=== PATIENT | female | born 1985 | race Caucasian/White ===

== ENCOUNTER 2023-03-18 11:47 | Emergency (ER) | payer OTHER, SELFPAY ==
--- NOTE | ~2023-03-18 | XR_ITS ---
EXAMINATION: XR ABDOMEN COMPLETE CLINICAL INDICATION: Constipation COMPARISON: None available. TECHNIQUE: 2 views of the abdomen. FINDINGS: There is scattered stool and gas seen in colon without distention. There is no organomegaly. No radiopaque calculi. There are surgical maría right upper quadrant from previous cholecystectomy. No gross bony abnormality seen. XR/XR abdomen 3V IMPRESSION: Mild constipation. No acute process seen.
--- NOTE | 2023-03-18 12:02 | ED.GENADULT ---
HPI - General Adult General Chief complaint: Abdominal Pain Stated complaint: Back Pain No Injury Time Seen by Provider: 03/18/23 18:55 Source: patient Mode of arrival: ambulatory Limitations: no limitations History of Present Illness HPI narrative: Patient comes to the emergency room complaining of constipation. Patient states that she has pushing so hard that now she has a small amount of rectal bleeding. Patient takes iron pills. Patient states that she has tried [id number] medications, topical oral that she has applied in the rectal area. One suppository which she applied earlier today. Patient denies nausea vomiting or diarrhea. Denies obstipation. Patient states that she has been unable to urinate since this morning. Yet she does not have any suprapubic tenderness. Related Data Previous Rx's Medication Instructions Recorded hydrocortisone 1 % topical cream 1 appl topical QID PRN itching 03/18/23 (Preparation H Hydrocortisone) #28.35 grams polyethylene glycol 3350 17 17 g PO BID #119 grams 03/18/23 gram/dose oral powder (Miralax) sodium phosphates 19 gram-7 118 ml [place] DAILY 21 days #133 mL 03/18/23 gram/118 mL enema (Fleet Enema) Allergies Allergy/AdvReac Type Severity Reaction Status Date / Time No Known Allergies Allergy Verified 03/18/23 12:03 Review of Systems Review of Systems: Constitutional : No Weight loss, No Fever, No Chills, No Night Sweats, No Fatigue, No Malaise ENT/Mouth : No Hearing loss, No Ear Pain, No Nasal Congestion, No Sinus Pain, No Hoarseness, No sore throat, No Rhinorrhea, No Swallowing Difficulty Eyes: No Eye Pain, No Swelling, No Redness, No Foreign Body, No Discharge, No Vision Changes Cardiovascular : No Chest Pain, No SOB, No Dyspnea on Exertion, No Orthopnea, No Edema, No Palpitations Respiratory : No Cough, No Sputum, No Wheezing, No Smoke Exposure, No Dyspnea Gastrointestinal : No Nausea, No Vomiting, No Diarrhea, complaining of Constipation, No abdominal Pain, complaining of rectal pressure, no pain Genitourinary : no irregular bleeding, No Dysuria, No Urinary Frequency, No Hematuria, No Urinary Incontinence, No Urgency, No Flank Pain, No Urinary Flow Changes, No Hesitancy Musculoskeletal : No joint pain, No Myalgias, No Joint Swelling Skin : No Skin Lesions, No rash Neuro : No Weakness, No Numbness, No Paresthesias, No Loss of Consciousness, No Dizziness, No Headache Psych : No Anxiety/Panic, No Depression, No SI/HI/AH/VH, No Social Issues, Heme/Lymph: No Bruising, No Bleeding,No Lymphadenopathy Endocrine : No Polyuria, No Polydipsia, No Temperature Intolerance [facility] Social History Social History Smoked in Last 30 Days: No Substance Use Type: Marijuana Substance Use Frequency: Occasionally Advance Directives: No Advance Directives Information Provided: Yes Physical Exam ED Vital Signs: Vital Signs - 24 hr 03/18/23 12:03 03/18/23 17:51 03/18/23 18:45 Temperature 97.8 F Pulse Rate 95 98 Respiratory Rate 16 18 20 Blood Pressure 148/103 H 137/91 H 129/87 Pulse Oximetry 100 99 98 Oxygen Delivery Method Room Air Room Air Room Air 03/18/23 20:01 Temperature Pulse Rate 77 Respiratory Rate 16 Blood Pressure 126/73 Pulse Oximetry 98 Oxygen Delivery Method Room Air BMI result Body Mass Index 42.5 Const Other: Appearance: Alert. Oriented X3. No acute distress. Eyes: Pupils equal, round and reactive to light. ENT: Pharynx normal. Neck: Normal inspection. Neck supple. No lymph nodes noted. No crepitus CVS: Normal heart rate and rhythm. Pulses normal. Normal S1 and S2 Respiratory: No respiratory distress. Breath sounds normal. No Wheezing. No rales Abdomen: Soft and nontender. No rigidity. No distention. Non thrombosed external hemorrhoid, not bleeding Skin: Skin warm and dry. Normal skin color. Normal skin turgor. Extremities: No lower extremity edema. No Lacerations. No Rash Neuro: Oriented X 3. No motor deficit. No sensory deficit. Moving all extremities. No slurred speech. CN 2 through 12 grossly intact Psych: calm, cooperative, normal affect Course Course Course Narrative: RME:?37 yo female hx hemorrhoids here w/ constipation x days. Last BM yesterday. Reports straining. Using oils/ suppositories to pass BM. not working. taking iron pills. last po intake yesterday. Plan for xr, labs Full HPI, ROS and PE to be performed by the primary ED provider. Medical Decision Making Medical Decision Making MDM Narrative: -my interpretation of KUB: No small bowel obstruction, moderate amount of stool. Discussed the JV with the patient -my interpretation of labs, normal hemoglobin and normal chemistry -bladder scan pending -I was informed by the patient's nurse that the patient reported that she went to the bathroom, had a large amount of urine output. Bladder scan after voiding 7 mL Differential Diagnosis Differential Diagnoses: The differential diagnosis associated with the presentation includes (Constipation, small-bowel obstruction) Lab Data MDM Lab Attestation statement: I reviewed the patient's lab results. 03/18/23 12:19 03/18/23 12:19 Labs: Lab Results 03/18/23 Range/Units 12:19 WBC 8.1 (4.8-10.8) X10*3/uL RBC 4.96 (4.20-5.50) X10*6/uL Hgb 12.8 (12.0-16.0) g/dl Hct 40.4 (37.0-47.0) % MCV 81.5 (80.0-98.0) fL MCH 25.8 L (27.0-33.0) pg MCHC 31.7 (31.0-35.0) g/dl RDW 16.8 H (11.0-16.0) % Plt Count 393 (160-400) X10*3/uL MPV 9.9 (9.4-12.3) fL Immature Gran % (Auto) 0.2 (0.0-0.4) % Neut % (Auto) 53.7 (45-73) % Lymph % (Auto) 37.8 (20-40) % Milam % (Auto) 5.4 (2-11) % Eos % (Auto) 2.5 (0-4) % Baso % (Auto) 0.4 (0-2) % Lymph # (Auto) 3.1 (1.2-4.9) X10*3/uL Milam # (Auto) 0.4 (0.1-1.2) X10*3/uL Eos # (Auto) 0.2 (0.0-0.4) X10*3/uL Baso # (Auto) 0.0 (0.0-0.2) X10*3/uL Abs Immat Gran (auto) 0.02 (0.00-0.03) X10*3/uL Absolute Neuts (auto) 4.4 (2.0-8.3) x10*3/uL Absolute Nucleated RBC 0.000 (0.0-0.012) X10*3/uL Nucleated RBC % (auto) 0.0 (0.0-0.2) /100WBC Sodium 141 (135-145) mmol/L Potassium 3.9 (3.3-5.1) mmol/L Chloride 111 H (96-108) mmol/L Carbon Dioxide 22 (22-29) mmol/L Anion Gap 12 (12-20) BUN 11 (9-16) mg/dL Creatinine 1.07 (0.5-1.4) mg/dL Estim Creat Clear Calc 79.6 Estimated GFR 58 Random Glucose 108 (60-115) mg/dL Calcium 9.5 (8.4-10.2) mg/dL Magnesium 2.3 (1.6-2.6) mg/dL Independent Interpretation I performed an independent interpretation of an: Plain X-Ray Radiology Impression Discussion of test interpretation with radiology: I have reviewed the radiologist's reading. Radiologist Impression: There is scattered stool and gas seen in colon without distention. There is no organomegaly. No radiopaque calculi. There are surgical maría right upper quadrant from previous cholecystectomy. No gross bony abnormality seen. XR/XR abdomen 3V IMPRESSION: Mild constipation. No acute process seen. Discharge Plan Discharge Clinical Impression: Constipation Patient Disposition: Home, Self-Care Instructions: Constipation (ED) Additional Instructions: Please follow-up with your primary care physician tomorrow. If you have any worsening or new symptoms, please return to the emergency room or call 911 Prescriptions: New polyethylene glycol 3350 [Miralax] 17 gram/dose powder 17 g PO BID Qty: 119 0RF hydrocortisone [Preparation H Hydrocortisone] 1 % cream 1 appl topical QID PRN (Reason: itching) Qty: 28.35 0RF Fleet Enema 19-7 gram/118 mL enema 118 ml OR DAILY 21 Days Qty: 133 1RF
[2023-03-18 12:03] VITALS: BP 148/103; PULSE 95; RESP 16; TEMP 36.6; O2SAT 100; BMI 42.5
[2023-03-18 12:27] LABS: MANUAL DIFF FLAG NO
[2023-03-18 12:30] LABS: Basophils Percent Auto 0.4 % (0-2); Eosinophils Absolute Auto 0.2 X10*3/uL (0.0-0.4); Eosinophils Percent Auto 2.5 % (0-4); Hematocrit 40.4 % (37.0-47.0); Hemoglobin 12.8 g/dl (12.0-16.0); Imm Gran Abs Auto 0.02 X10*3/uL (0.00-0.03); Imm Gran Pct Auto 0.2 % (0.0-0.4); Lymphocytes Absolute Auto 3.1 X10*3/uL (1.2-4.9); Lymphocytes Percent Auto 37.8 % (20-40); Mean Corpuscular HGB Conc 31.7 g/dl (31.0-35.0); Mean Corpuscular Hemoglobin 25.8 pg (27.0-33.0); Mean Corpuscular Volume 81.5 fL (80.0-98.0); Mean Platelet Volume 9.9 fL (9.4-12.3); Monocytes Absolute Auto 0.4 X10*3/uL (0.1-1.2); Monocytes Percent Auto 5.4 % (2-11); Neutrophils Absolute Auto 4.4 x10*3/uL (2.0-8.3); Neutrophils Percent Auto 53.7 % (45-73); Platelet Count 393 X10*3/uL (160-400); Red Blood Count 4.96 X10*6/uL (4.20-5.50); Red Cell Distribution Width 16.8 % (11.0-16.0); White Blood Count 8.1 X10*3/uL (4.8-10.8)
[2023-03-18 12:43] LABS: Anion Gap 12 (12-20); Blood Urea Nitrogen 11 mg/dL (9-16); Calcium 9.5 mg/dL (8.4-10.2); Carbon Dioxide 22 mmol/L (22-29); Chloride 111 mmol/L (96-108); Creatinine Clr Calc Pharmacy 79.6; Estimated Glomerular Filt Rate 58; Glucose Random 108 mg/dL (60-115); Magnesium 2.3 mg/dL (1.6-2.6); Potassium 3.9 mmol/L (3.3-5.1); Sodium 141 mmol/L (135-145)
[2023-03-18 17:51] VITALS: BP 137/91; PULSE 98; RESP 18; O2SAT 99
--- NOTE | 2023-03-18 18:42 | PC.NURSE ---
Patient reports she is constipated, last Bm yesterday morning, hx of hemorrhoids and has been straining to have a bm. Reports was recently started on iron pills for anemia. gave herself a sup with no effect and states now is unable to void because of the constipation.
[2023-03-18 18:45] VITALS: BP 129/87; RESP 20; O2SAT 98
[2023-03-18 20:01] VITALS: BP 126/73; PULSE 77; RESP 16; O2SAT 98
== END 2023-03-18 20:26 | disposition home or self-care (01) ==
PROVIDERS: Physician Assistant Medical; Emergency Provider Emergency Medicine
DX: K59.00 Constipation, unspecified (principal); M54.50 Low back pain, unspecified; R33.9 Retention of urine, unspecified; Z79.899 Other long term (current) drug therapy
CPT/HCPCS: 36415; 51798; 74021; 80048; 83735; 85025; 99283; 99284

== ENCOUNTER 2023-07-07 16:52 | Emergency (ER) | payer OTHER, SELFPAY ==
[2023-07-07 17:44] VITALS: BP 129/104; PULSE 76; RESP 18; TEMP 36.8; O2SAT 98; BMI 42.1
--- NOTE | 2023-07-07 17:47 | ED_ITS ---
HPI - General Adult General Chief complaint: Head Injury Stated complaint: hit in head with hammock stand Time Seen by Provider: 07/07/23 17:47 Related Data Previous Rx's ?Medication ?Instructions ?Recorded hydrocortisone 1 % topical cream 1 appl topical QID PRN itching 03/18/23 (Preparation H Hydrocortisone) #28.35 grams polyethylene glycol 3350 17 17 g PO BID #119 grams 03/18/23 gram/dose oral powder (Miralax) sodium phosphates 19 gram-7 118 ml [place] DAILY 21 days #133 mL 03/18/23 gram/118 mL enema (Fleet Enema) Allergies Allergy/AdvReac Type Severity Reaction Status Date / Time No Known Allergies Allergy Verified 07/07/23 17:47 [facility] Social History Social History Substance Use Type: Marijuana Physical Exam ED Vital Signs: Vital Signs - 24 hr 07/07/23 17:44 Temperature 98.3 F Pulse Rate 76 Respiratory Rate 18 Blood Pressure 129/104 H Pulse Oximetry 98 Oxygen Delivery Method Room Air BMI result Body Mass Index 42.1 Discharge Plan Discharge Clinical Impression: Closed head injury Patient Disposition: Home, Self-Care Instructions: Head Injury (ED) Additional Instructions: Use ibuprofen/Tylenol for any pain or headaches. Apply ice to the sore area every 4 hours for 10-15 minutes Follow-up with your primary doctor Return for new or worsening symptoms especially develop vomiting, lightheadedness or loss of vision Prescriptions: No Action polyethylene glycol 3350 [Miralax] 17 gram/dose powder 17 g PO BID Qty: 119 0RF hydrocortisone [Preparation H Hydrocortisone] 1 % cream 1 appl topical QID PRN (Reason: itching) Qty: 28.35 0RF Fleet Enema 19-7 gram/118 mL enema 118 ml [place] DAILY 21 Days Qty: 133 1RF Print Language: Arabic
[2023-07-07 17:56] VITALS: BP 129/104; PULSE 76; RESP 18; TEMP 36.9; O2SAT 98
== END 2023-07-07 17:57 | disposition home or self-care (01) ==
PROVIDERS: Emergency Provider Emergency Medicine; PCP Internal Medicine
DX: S09.90XA Unspecified injury of head, initial encounter (principal); W22.8XXA Striking against or struck by other objects, initial encounter; Y93.9 Activity, unspecified; Y92.9 Unspecified place or not applicable; Y99.9 Unspecified external cause status
CPT/HCPCS: 99282